=== PATIENT | male | born 1995 | race African-American/Black ===

== ENCOUNTER 2021-09-19 18:20 | Emergency (ER) | payer OTHER ==
[~2021-09-19] VITALS: Ht 175.3 cm; Wt 78.5 kg
[2021-09-19 18:20] VITALS: BP 123/73
[~2021-09-19 18:20] MED LIST: APAP W/CODEINE1 TA2 PO; NOHOMEMEDICATIONS
== END 2021-09-19 18:57 | disposition home or self-care (01) ==
LOC: ER 18:20
DX: S01.81XA Laceration without foreign body of other part of head, initial encounter (principal); F12.90 Cannabis use, unspecified, uncomplicated; W22.8XXA Striking against or struck by other objects, initial encounter; Y93.89 Activity, other specified; Y92.89 Other specified places as the place of occurrence of the external cause; Y99.8 Other external cause status

== ENCOUNTER 2021-09-25 17:09 | Emergency (ER) | payer OTHER ==
[~2021-09-25] VITALS: Ht 175.3 cm; Wt 78.5 kg
[2021-09-25 17:10] VITALS: BP 114/66
== END 2021-09-25 17:21 | disposition home or self-care (01) ==
LOC: ER 17:09
DX: S01.81XD Laceration without foreign body of other part of head, subsequent encounter (principal); X58.XXXD Exposure to other specified factors, subsequent encounter

== ENCOUNTER 2021-09-30 13:54 | Emergency (ER) | payer OTHER ==
[~2021-09-30] VITALS: Ht 175.3 cm; Wt 78.5 kg
[2021-09-30] MEDS ORDERED: ANUSOL-HC25 MG RECTAL (16:20)
[2021-09-30 16:48] VITALS: BP 113/80
== END 2021-09-30 18:48 | disposition home or self-care (01) ==
LOC: ER 13:54
DX: K64.8 Other hemorrhoids (principal)